=== PATIENT | female | born 1955 | race Caucasian/White ===

== ENCOUNTER → 2018-03-16 | Outpatient (CLI) | payer OTHER | LOC: CIMAGING 03-11 13:23 | PROVIDERS: ATTEND Family Medicine | DX: R59.0 Localized enlarged lymph nodes (principal); Z98.82 Breast implant status | CPT/HCPCS: 76641-PO ==

== ENCOUNTER → 2018-03-25 | Outpatient (CLI) | payer OTHER ==
[~2018-03-25] MED LIST: LIDOCAINE 1% 300 MG/30 ML SDV ONE
== END ==
LOC: FIMAGING 07:52
PROVIDERS: ATTEND Internal Medicine Hematology & Oncology
PROC: 07B53ZX Excision of Right Axillary Lymphatic, Percutaneous Approach, Diagnostic (ICD-10-PCS; principal; 2018-03-25)
DX: C82.04 Follicular lymphoma grade I, lymph nodes of axilla and upper limb (principal); C82.14 Follicular lymphoma grade II, lymph nodes of axilla and upper limb
CPT/HCPCS: 88184-90; 88185-91